=== PATIENT | male | born 1950 | race Caucasian/White ===

== ENCOUNTER 2020-02-02 10:11 | Outpatient (NON) | payer MEDICARE, OTHER, SELFPAY ==
[2020-02-03 18:20] LABS: SARS-CoV-2 RNA PCR Negative
== END 2020-02-02 10:12 ==
PROVIDERS: Visit Provider Family Medicine
DX: Z20.828 Contact with and (suspected) exposure to other viral communicable diseases (principal)
CPT/HCPCS: 87635; C9803; U0003

== ENCOUNTER 2020-05-06 06:53 | Outpatient (NON) | payer MEDICARE, OTHER, SELFPAY ==
[2020-05-07 13:43] LABS: SARS-CoV-2 RNA PCR Negative
== END 2020-05-06 06:54 ==
LOC: ANHCOVIDDT 06:59
PROVIDERS: Visit Provider Family Medicine
DX: R68.89 Other general symptoms and signs (principal); Z20.828 Contact with and (suspected) exposure to other viral communicable diseases
CPT/HCPCS: 87635; C9803; U0003

== ENCOUNTER 2020-10-24 16:35 | Outpatient (CLI) | payer MEDICARE, OTHER, SELFPAY ==
--- NOTE | ~2020-10-24 | XR_ITS ---
XR chest 2V DATE: 10/24/2020 16:49 INDICATION: Cough for one year TECHNIQUE: PA and lateral views COMPARISON: 05/14/2017 CT chest 03/31/2016 PA and lateral chest FINDINGS: Borderline heart size. Large hiatal hernia. Aortic calcification. No hilar or mediastinal enlargement is evident. No pulmonary infiltrate or consolidation, pleural effusion or pulmonary vascular congestion or pneumo thorax. IMPRESSION: Large hiatal hernia Borderline heart size Aortic calcification No active pulmonary disease Reviewed, dictated and finalized at location A.
== END 2020-10-24 16:36 | disposition home or self-care (01) ==
LOC: ANHIMG 16:38
PROVIDERS: PCP Family Medicine; Visit Provider Nurse Practitioner Family
DX: R05 Cough (principal); R06.02 Shortness of breath; K44.9 Diaphragmatic hernia without obstruction or gangrene; I70.0 Atherosclerosis of aorta
CPT/HCPCS: 71046